=== PATIENT | female | born 1970 | race Caucasian/White ===

== ENCOUNTER → 2017-11-28 | Outpatient (CLI) | payer BC, OTHER ==
--- NOTE | 2017-11-29 07:52 | MM ---
Reason for exam: screening (asymptomatic). Last mammogram was performed 2 years and 7 months ago. History: Patient is postmenopausal, has history of other cancer at age 32, and is nulliparous. Family history of breast cancer in mother at age 50. Saline implants in both breasts, 2005. Physical Findings: A clinical breast exam by your physician is recommended on an annual basis and results should be correlated with mammographic findings. MG 3D Screen Mammo Imp/Cad Bilateral CC, MLO, and ID view(s) were taken. Prior study comparison: May 04, 2015, bilateral MG 3d diag mammo imp w/cad ROSENDO. March 26, 2014, bilateral MG screening mammo w CAD. The breast tissue is heterogeneously dense. This may lower the sensitivity of mammography. Asymmetric breast tissue in the left breast, stable. There is no discrete abnormality. Subpectoral breast implants bilaterally. ASSESSMENT: Benign, BI-RAD 2 RECOMMENDATION: Routine screening mammogram of both breasts in 1 year.
== END ==
LOC: RADMAMWWP 07:29
PROVIDERS: ATTEND Obstetrics & Gynecology
DX: Z12.31 Encounter for screening mammogram for malignant neoplasm of breast (principal)
CPT/HCPCS: 77063; 77067

== ENCOUNTER → 2020-10-31 | Outpatient (CLI) | payer OTHER ==
--- NOTE | 2020-10-31 14:04 | USB ---
Reason for exam: clinical finding. History: Patient is postmenopausal, has history of other cancer at age 32, and is nulliparous. Family history of breast cancer in mother at age 50. Saline implants in both breasts, 2004. Indicated problem(s): palpable abnormality in the right breast. Physical Findings: Nurse Summary: right breast palpable 6 o'clock x 2, 1 x 1.5cm, tender, movable (nurse ts). US Breast Limited RT Right limited breast ultrasound including focal area of concern, retroareolar and axilla demonstrates a 9 x 7 x 8mm oval, mixed lesion at 6 o'clock, a 10 x 8 x 9mm oval, hypoechoic lesion at 6 o'clock for which a biopsy is recommended and a 7 x 4 x 9mm oval, hypoechoic lesion at 5 o'clock for which a biopsy is recommended. These results were verbally communicated with the patient and result sheet given to the patient on 10/31/20. ASSESSMENT: Incomplete: need additional imaging evaluation, BI-RAD 0 RECOMMENDATION: Follow-up diagnostic mammogram of both breasts. Ultrasound core biopsy of the right breast. (two sites, 5 and 6 o'clock) Called Dr. Crcokett's office with mammographic findings and has scheduled an appointment for the patient for 11/24/20 at 11:[address] Blackwood. Biopsy scheduled for 11/11/20 at 10:30. PRELIMINARY REPORT CALLED AND FAXED TO DR. BLACKWOOD ON 10/31/20.
--- NOTE | 2020-10-31 14:05 | MM ---
Reason for exam: additional evaluation requested from abnormal screening. Last mammogram was performed 2 years and 11 months ago. History: Patient is postmenopausal, has history of other cancer at age 32, and is nulliparous. Family history of breast cancer in mother at age 50. Saline implants in both breasts, 2005. MG 3D Diag Mammo Imp W/Cad ROSENDO Bilateral CC, MLO, and ID view(s) were taken. Prior study comparison: November 28, 2017, bilateral MG 3d screen mammo imp/cad. May 04, 2015, bilateral MG 3d diag mammo imp w/cad ROSENDO. The breast tissue is heterogeneously dense. This may lower the sensitivity of mammography. There is no discrete abnormality including area of concern bilaterally. These results were verbally communicated with the patient and result sheet given to the patient on 10/31/20. ASSESSMENT: Suspicious, BI-RAD 4 (per ultrasound finding) RECOMMENDATION: Ultrasound core biopsy of the right breast. (two sites, 5 and 6 o'clock) Called Dr. Crockett's office with mammographic findings and has scheduled an appointment for the patient for 11/24/20 at 11:[address] Blackwood. Biopsy scheduled for 11/11/20 at 10:30. PRELIMINARY REPORT CALLED AND FAXED TO DR. BLACKWOOD ON 10/31/20.
== END | disposition home or self-care (01) ==
LOC: RADUSWWP 09:36
PROVIDERS: ATTEND Plastic Surgery
DX: N63.0 Unspecified lump in unspecified breast (principal); Z80.3 Family history of malignant neoplasm of breast
CPT/HCPCS: 77066; 76642; G0279; 77062

== ENCOUNTER → 2020-11-11 | Day surgery (SDC) | payer OTHER ==
[2020-11-11 10:37] VITALS: RESP 16
[2020-11-11 12:11] VITALS: BP 106/62; PULSE 52; TEMP 98.4
--- NOTE | 2020-11-11 12:41 | USB ---
EXAMINATION TYPE: US biopsy breast VAD RT, US biopsy breast add'l VAD RT, MG diagnostic mammo RT wo CAD DATE OF EXAM: 11/11/2020 CLINICAL HISTORY: R92.8 Abnormal mammogram. TECHNIQUE: Ultrasound guided core biopsy of right breast at the 5 and 6:00 positions breast. COMPARISON: NONE FINDINGS: The procedure of ultrasound guided core biopsy was explained to the patient. Benefits, alternatives, and risks were discussed. An informed consent was then obtained. The patient was placed in supine positioning for imaging and for the procedure. The overlying skin was prepped and draped in usual sterile fashion. Lidocaine buffered with bicarbonate was used as anesthetic into the skin and subcutaneous tissue up to area of concern in the right breast at the 5 and 6:00 positions breast. A concepcion was made with surgical scalpel. Under ultrasound guidance, a 12-gauge vacuum assisted biopsy gun device was used to obtain 5 core samples from the 6:00 location and 3 core samples from the 5:00 locatio.. Following this, a biopsy clip was left in both lesions. The patient tolerated the procedure well without any immediate complication. The patient was kept in the radiology department for short stay after the procedure and then discharged home in stable condition. IMPRESSION: Successful, uncomplicated ultrasound guided core biopsy of area of concern in the right breast at the 5 and 6:00 positions breast, full pathology results to follow. Pathology Results: Benign A. RIGHT BREAST, 5:00, CORE BIOPSY: Fibrotic scar with fat necrosis and chronic inflammation. Negative for in situ or invasive malignancy. Focal foreign material present adjacent to histiocytic chronic inflammation/fat necrosis. B. RIGHT BREAST, 6:00, CORE BIOPSY: Fibrous scar with fat necrosis and chronic inflammation. Negative for in situ or invasive malignancy. Focal foreign body type tissue reaction present. Recommendation Follow up ultrasound of the right breast in 6 months. MTDD
== END ==
LOC: RADUSWWP 10:23
PROVIDERS: ATTEND Surgery
DX: N64.1 Fat necrosis of breast (principal); R92.8 Other abnormal and inconclusive findings on diagnostic imaging of breast; Z88.6 Allergy status to analgesic agent
CPT/HCPCS: 88305; 77065; 19083; 19084; A4648; J2001

== ENCOUNTER → 2021-10-16 | Outpatient (CLI) | payer OTHER ==
--- NOTE | 2021-10-16 12:47 | P.BASOAP ---
Subjective Progress Note Date: 10/16/21 Principal diagnosis: Dysphagia 51-year-old female known to our service. Patient with history of lap band placement many years ago. She did have a prolapse fixed at one point. Starting last she ate some heri and felt like it had gotten stuck possibly. Following that up until today she has had intermittent spastic pains in the chest. She says she is able to drink liquids and eat without significant difficulty. She is unsure how much fluid is in her band. Patient had an EGD in 2014. No recent upper GI. Objective - Vital Signs Vital signs: Intake & Output 10/15/21 10/16/21 10/16/21 18:59 06:59 18:59 Weight 77.474 kg - Exam Abdomen: Soft, nontender, nondistended Assessment/Plan (1) Dysphagia Narrative/Plan: Options reviewed with patient. Suspect the patient may have some residual fluid present above the band. Will empty band at this time. Patient will have an upper GI in the next 2-4 weeks assuming she is symptom-free. If there are any residual symptoms she will contact me. We'll see the patient following up to discuss adding fluid back to the band. The patient's lap band port was palpated. The site was aseptically prepped. The Sexton needle was advanced into the port. A total of 5 ml of fluid was removed. Pressure was held and a sterile dressing was applied. Plan: Date: Initial Weight: Initial BMI: Current Weight: 77.474 kg Current BMI: Type of Surgery: Total Volume in Band: Previous Volume: Volume Removed: Volume Added: Band Size:
[2021-10-16 12:54] VITALS: BP 157/96; PULSE 72; TEMP 98.3; BMI 27.1
== END ==
LOC: BARWHC3 12:14
PROVIDERS: ATTEND Surgery
DX: Z46.51 Encounter for fitting and adjustment of gastric lap band (principal); R13.10 Dysphagia, unspecified; Z88.8 Allergy status to other drugs, medicaments and biological substances; Z88.9 Allergy status to unspecified drugs, medicaments and biological substances; Z87.891 Personal history of nicotine dependence
CPT/HCPCS: 99212

== ENCOUNTER → 2021-10-31 | Outpatient (CLI) | payer OTHER ==
[2021-10-31 14:42] VITALS: BP 162/84; PULSE 74; RESP 16; TEMP 98.2; BMI 27.5
--- NOTE | 2021-10-31 15:02 | P.BASOAP ---
Subjective Progress Note Date: 10/31/21 Principal diagnosis: Morbid obesity Patient returns today for evaluation. When she was seen a few weeks ago she was having issues with pain and occasional vomiting. Her band was emptied -5 mL at that time. Today she had an upper GI that appears normal. Requesting more fluid to be adequate. Her symptoms resolved after her band was loosened. Objective - Vital Signs Vital signs: Vital Signs Temp 98.2 F 10/31/21 14:39 Pulse 74 10/31/21 14:39 Resp 16 10/31/21 14:39 BP 162/84 10/31/21 14:39 Pulse Ox FiO2 Intake & Output 10/30/21 10/31/21 10/31/21 18:59 06:59 18:59 Weight 78.471 kg - Exam Abdomen: Soft, nontender, nondistended Assessment/Plan (1) Dysphagia Narrative/Plan: Patient requesting fluid added back to her band. We'll and 3 mL at this time. Follow-up if further feels needed. The patient's lap band port was palpated. The site was aseptically prepped. The Sexton needle was advanced into the port. A total of 3 ml of fluid was added for a total of 3 mL. Pressure was held and a sterile dressing was applied. Plan: Date: 10/31/21 Initial Weight: 78.471 kg Initial BMI: 27.5 Current Weight: 78.471 kg Current BMI: 27.5 Type of Surgery: Total Volume in Band: 0 Previous Volume: Volume Removed: Volume Added: Band Size:
== END | disposition home or self-care (01) ==
LOC: BARWHC3 14:22
PROVIDERS: ATTEND Surgery
DX: E66.01 Morbid (severe) obesity due to excess calories (principal); Z68.27 Body mass index [BMI] 27.0-27.9, adult
CPT/HCPCS: 99212

== ENCOUNTER → 2021-10-31 | Outpatient (CLI) | payer OTHER ==
--- NOTE | 2021-10-31 14:34 | FL ---
GASTRIC BANDING ESOPHAGRAM CLINICAL HISTORY: R13.10 DYSPHAGIA Gastric banding esophagram was performed. The patient ingested thin liquid barium without difficulty or delay. Gastric band is noted to be in place. There is no evidence for leak or obstruction. No prolapse is identified. IMPRESSION: Normal-appearing gastric banding device without leak or obstruction.
== END | disposition home or self-care (01) ==
LOC: RADUSWWP 13:45
PROVIDERS: ATTEND Surgery
DX: R13.10 Dysphagia, unspecified (principal)
CPT/HCPCS: 74220

== ENCOUNTER → 2021-11-21 | Outpatient (CLI) | payer OTHER ==
[2021-11-21 15:19] VITALS: BP 151/87; PULSE 71; RESP 16; TEMP 98.1; BMI 28.4
--- NOTE | 2022-01-09 13:27 | P.BASOAP ---
Subjective Progress Note Date: 11/21/21 Principal diagnosis: Morbid obesity Patient returns for recheck. Patient would like more fluid added to her band. She says that she would like to try 5 mL again since it did so well for her for so long. No nausea or vomiting. No restriction at this time. Objective - Vital Signs Vital signs: Vital Signs Temp 98.1 F 11/21/21 15:17 Pulse 71 11/21/21 15:17 Resp 16 11/21/21 15:17 BP 151/87 11/21/21 15:17 Pulse Ox FiO2 Intake & Output 11/20/21 11/21/21 11/21/21 18:59 06:59 18:59 Weight 81.193 kg - Exam Abdomen: Soft, nontender, nondistended Assessment/Plan (1) Dysphagia Narrative/Plan: 51-year-old female with morbid obesity. She would like more fluid added to her band. We discussed the options of how much to add at this time. She believes that she may have had food stuck last time. Therefore she would like to try going back to 5 mL. We have agreed at 2 mL at this time for total of 5 mL. She will contact me with any recurrent discomfort, reflux, dysphagia, or vomiting. The patient's lap band port was palpated. The site was aseptically prepped. The Sexton needle was advanced into the port. A total of 2 ml of fluid was added. Pressure was held and a sterile dressing was applied. Plan: Date: 11/21/21 Initial Weight: 78.471 kg Initial BMI: 27.5 Current Weight: 81.193 kg Current BMI: 28.4 Type of Surgery: Total Volume in Band: 3 Previous Volume: Volume Removed: Volume Added: Band Size:
== END | disposition home or self-care (01) ==
LOC: BARWHC3 15:16
PROVIDERS: ATTEND Surgery
DX: E66.01 Morbid (severe) obesity due to excess calories (principal); R13.10 Dysphagia, unspecified; Z68.28 Body mass index [BMI] 28.0-28.9, adult
CPT/HCPCS: 99212

== ENCOUNTER → 2022-01-09 | Outpatient (CLI) | payer OTHER ==
[2022-01-09 13:19] VITALS: BP 162/87; PULSE 67; RESP 16; TEMP 98.1; BMI 29.0
--- NOTE | 2022-01-09 13:34 | P.BASOAP ---
Subjective Progress Note Date: 01/09/22 Principal diagnosis: Morbid obesity Patient returns for recheck. Patient describes decreased restriction. A few visits ago the patient had 5 mL removed. She then had 3 mL added and then last visit had an additional 2 mL for a total of 5 mL. Patient says she still has no restriction. Eating 3-4 pieces of pizza at a time. No nausea or vomiting. No reflux. Objective - Vital Signs Vital signs: Vital Signs Temp 98.1 F 01/09/22 13:14 Pulse 67 01/09/22 13:14 Resp 16 01/09/22 13:14 BP 162/87 01/09/22 13:14 Pulse Ox FiO2 Intake & Output 01/08/22 01/09/22 01/09/22 18:59 06:59 18:59 Weight 83.007 kg - Exam Abdomen: Soft, nondistended, incisions clean and dry Assessment/Plan (1) Morbid obesity Narrative/Plan: Patient requesting additional fill. She and I discussed the options. We'll add 0.5 mL today. Total should be 5.5 mL. Check upper GI prior to any additional fills. The patient's lap band port was palpated. The site was aseptically prepped. The Sexton needle was advanced into the port. A total of 0.5 ml of fluid was added for a total of 5.5 mL. We did check the volume which was 5 mL prior to the fill. Pressure was held and a sterile dressing was applied. Plan: Date: 01/09/22 Initial Weight: 78.471 kg Initial BMI: 27.5 Current Weight: 83.007 kg Current BMI: 29.0 Type of Surgery: Total Volume in Band: 5 Previous Volume: Volume Removed: Volume Added: Band Size:
== END ==
LOC: BARWHC3 12:59
PROVIDERS: ATTEND Surgery
DX: Z98.84 Bariatric surgery status (principal); E66.01 Morbid (severe) obesity due to excess calories; Z87.891 Personal history of nicotine dependence; Z91.048 Other nonmedicinal substance allergy status; Z88.8 Allergy status to other drugs, medicaments and biological substances; Z68.29 Body mass index [BMI] 29.0-29.9, adult
CPT/HCPCS: 99211

== ENCOUNTER → 2022-02-15 | Outpatient (CLI) | payer OTHER ==
--- NOTE | 2022-02-18 13:36 | MM ---
Reason for Exam: Screening (asymptomatic). Last mammogram was performed 1 year(s) and 3 month(s) ago. Patient History: Menarche at age 10. Patient has no children. Left ovary removed at age 32. Right ovary removed at age 32. Hysterectomy at age 32. Postmenopausal. 11/11/2020, Benign Core Biopsy on the right side. 11/11/2020, Benign Core Biopsy on the right side. 07/03/2019, Bilateral Explants. 07/03/2019, Bilateral Implants. 2004, Bilateral Implants. Mother had breast cancer, age 50. Risk Values: Vicki 5 year model risk: 3.2%. NCI Lifetime model risk: 23.0%. Prior Study Comparison: 11/28/2017 Bilateral Screening Mammogram, [facility]. 10/31/2020 Bilateral Diagnostic Mammogram, [facility]. 11/11/2020 Right Diagnostic Mammogram, [facility]. Tissue Density: The breast tissue is heterogeneously dense. This may lower the sensitivity of mammography. Findings: Analyzed By CAD. Multiple areas of bilaterally symmetric density appear unchanged. Group of calcifications inferior right breast with microclip from prior biopsy. Bilateral retropectoral silicone implants are demonstrated. No significant change is identified. Overall Assessment: Benign, BI-RAD 2 Management: Screening Mammogram of both breasts in 1 year. 1. Per NCCN guidelines, a 5 year risk greater than 1.67% is used to assess eligibility for risk reduction therapy. Consider specialist referral for further assessment. 2. In addition, note the patient's increased (greater than 20%) lifetime risk for the development of breast cancer. The patient may qualify for alternating screening with mammogram and breast MRI. 3. Patient should continue monthly self breast exams. Negative results should not preclude additional follow-up of suspicious palpable abnormalities. Electronically signed and approved by: Kelly Rob M.D. Radiologist
== END | disposition home or self-care (01) ==
LOC: RADMAMWWP 14:44
PROVIDERS: ATTEND Internal Medicine
DX: Z12.31 Encounter for screening mammogram for malignant neoplasm of breast (principal); Z78.0 Asymptomatic menopausal state; Z80.3 Family history of malignant neoplasm of breast
CPT/HCPCS: 77063; 77067

== ENCOUNTER → 2023-04-29 | Outpatient (CLI) | payer OTHER ==
--- NOTE | 2023-05-01 07:40 | MM ---
Reason for Exam: Screening (asymptomatic). Last mammogram was performed 1 year(s) and 3 month(s) ago. Patient History: Menarche at age 10. Patient has no children. Left ovary removed at age 32. Right ovary removed at age 32. Hysterectomy at age 32. Postmenopausal. 11/11/2020, Benign Core Biopsy on the right side. 11/11/2020, Benign Core Biopsy on the right side. 07/03/2019, Bilateral Explants. 07/03/2019, Bilateral Implants. 2004, Bilateral Implants. Mother had breast cancer, age 50. Risk Values: Aicha 5 year model risk: 3.4%. NCI Lifetime model risk: 22.7%. Prior Study Comparison: 10/31/2020 Bilateral Diagnostic Mammogram, [facility]. 11/11/2020 Right Diagnostic Mammogram, [facility]. 02/15/2022 Bilateral MG 3D screen mammo imp/cad., [facility]. Tissue Density: The breasts are heterogeneously dense, which may obscure small masses. Findings: Analyzed By CAD. Prepectoral saline implants. Microclip right breast from prior biopsy. Fat necrosis calcifications inferiorly on the right. Unchanged bilateral areas of asymmetric density. No patient's increased risk scores above and recommendations below. There is no suspicious group of microcalcifications or new suspicious mass in either breast. Overall Assessment: Benign, BI-RAD 2 Management: Screening Mammogram of both breasts in 1 year. SEE NOTE BELOW IN REGARDS TO PATIENT'S INCREASED 5 YEAR AICHA AND INCREASED LIFETIME RISK SCORE. Patient should continue monthly self-breast exams. A clinical breast exam by your physician is recommended on an annual basis. This exam should not preclude additional follow-up of suspicious palpable abnormalities. Note on Aicha scores and lifetime risk: 1. A Aicha score greater than 3% is considered moderate risk. If this is the case, consider specialist referral to assess eligibility for a risk reducing agent. 2. If overall lifetime risk for the development of breast cancer is 20% or higher, the patient may qualify for future screening with alternating mammogram and breast MRI. Electronically signed and approved by: Kelly Rob M.D. Radiologist
== END | disposition home or self-care (01) ==
LOC: RADMAMWWP 12:44
PROVIDERS: ATTEND Obstetrics & Gynecology
DX: Z12.31 Encounter for screening mammogram for malignant neoplasm of breast (principal); Z78.0 Asymptomatic menopausal state; Z80.3 Family history of malignant neoplasm of breast
CPT/HCPCS: 77063; 77067

== ENCOUNTER → 2023-12-17 | Outpatient (CLI) | payer OTHER ==
[2023-12-17 10:06] VITALS: BP 129/86; PULSE 69; RESP 16; TEMP 98.2
--- NOTE | 2023-12-17 10:59 | P.HPOB ---
History of Present Illness H&P Date: 12/17/23 Chief Complaint: The patient is here for her routine gynecologic exam. This is a 53-year-old G0 with an LMP of 2002. The patient is here to establish with this office. It has been about 1 year since her last pelvic exam. She is status post LORRIE with unilateral oophorectomy in 2002. She states that cervical cancer was found at the time of the hysterectomy. She is status post radiation and chemotherapy as well. She has had Pap smears done on a regular basis since her hysterectomy. She is without gynecologic complaints. Review of Systems The patient's weight has been stable over the last year. She denies respiratory, cardiac, or G.I. problems. Past Medical History Past Medical History: Asthma, Cancer Additional Past Medical History / Comment(s): anemia. 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 History of Any Multi-Drug Resistant Organisms: None Reported Past Surgical History: Bariatric Surgery, Breast Surgery, Hysterectomy, Orthopedic Surgery Additional Past Surgical History / Comment(s): lap band, abdominoplasty and breast reconstrucion, rt knee surgery, deviated septum. Bilateral breast implants with later replacement of implants. LORRIE with unilateral oophorectomy in 2002. Colonoscopy approximately 2012. Past Anesthesia/Blood Transfusion Reactions: Motion Sickness, Postoperative Nausea & Vomiting (PONV) Past Psychological History: Anxiety Smoking Status: Former smoker Past Alcohol Use History: Rare (Drinks per year) Additional Past Alcohol Use History / Comment(s): started smoking in her 20's, quit smoking 2002, Past Drug Use History: None Reported Additional History: She is single but has been with her boyfriend since 2012. They are not sexually active. They live separately. She cares for her elderly mother. - Past Family History Mother Family Medical History: Cancer Additional Family Medical History / Comment(s): breast cancer Father Family Medical History: Congestive Heart Failure (CHF) Additional Family Medical History / Comment(s): . Sister(s) Additional Family Medical History / Comment(s): Endometriosis. Medications and Allergies Home Medications Medication Instructions Recorded Confirmed Type ALPRAZolam [Xanax] 1 mg PO DAILY PRN 12/09/14 12/17/23 History Albuterol Inhaler [Ventolin 1 - 2 puff INHALATION Q6HR PRN 12/09/14 12/17/23 History Inhaler] lamoTRIgine [LaMICtal] 150 mg PO BID 11/02/20 12/17/23 History Allergies Allergy/AdvReac Type Severity Reaction Status Date / Time nickel Allergy blisters Verified 12/17/23 10:03 rofecoxib [From Vioxx] Allergy vomtiing Verified 12/17/23 10:03 Exam Vital Signs Temp Pulse Resp BP Pulse Ox 12/17/23 10:04 98.2 F 69 16 129/86 99 Intake and Output 12/16/23 12/17/23 12/17/23 22:59 06:59 14:59 Other: Weight 76.657 kg Height 5 feet 7 inches, weight 169 pounds, BMI 26.5. This is a well-developed well-nourished white female who is alert and oriented times 3 in no acute distress. HEENT: Within normal limits. NECK: Supple without mass or thyromegaly. CHEST AND LUNGS: Clear to auscultation. HEART: Regular rate and rhythm. BREASTS: Are without mass or discharge. Breasts are consistent with bilateral implants. AXILLARY EXAM: Negative for adenopathy. BACK: Negative for CVA tenderness. ABDOMEN: Soft, nontender, without palpable masses. The Lap-Band port is palpable in the upper left quadrant of the abdomen approximately 6 cm from the umbilicus. It is nontender. PELVIC EXAM: External genitalia appears normal with mild atrophy. Vagina appears normal with mild to moderate atrophy. The vagina is somewhat shortened and slightly narrower than normal consistent with her previous radiation therapy. There is no evidence of prolapse. Bimanual examination is negative for mass or tenderness. RECTAL EXAM: With rectovaginal examination there is a palpable mass measuring approximately 2.5 cm which is somewhat firm and irregular, but mobile, distal to the vagina and anterior to the rectum. It is near the midline. EXTREMITIES: Nontender. IMPRESSION: 1. 53-year-old menopausal female status post [facility] with unilateral oophorectomy in 2002 where cervical cancer was found. She is status post chemotherapy and radiation therapy for this. 2. Palpable pelvic mass measuring approximately 2.5 cm noted on rectovaginal exam. This most likely represents stool, but ovarian neoplasm cannot be ruled out. PLAN: 1. Pap smear was performed from the vaginal cuff. We will continue to do this yearly because of her history of cervical cancer. 2. Self breast awareness was discussed with the patient. We have also discussed symptoms associated with inflammatory breast cancer. 3. Screening mammogram was last done on 04/29/2023 and was benign. This will be repeated after 1 year. The order slip was given to the patient for this. 4. Osteoporosis prevention was discussed. I have stressed the importance of adequate calcium, vitamin D and regular exercise. Recommended amounts of calcium and vitamin D were also discussed. 5. Pelvic ultrasound was recommended to further evaluate the pelvic mass. She was asked to try to empty her bowels the best she can and to use an over-the- counter stool softener and laxative such as Senokot, if needed. The order slip was given to the patient for the pelvic ultrasound. 6. Cologuard testing was recently done and was negative per the patient. She will continue to do colorectal cancer screening through her PCP. 7. She was advised to return in one year for her annual well woman exam.
== END ==
LOC: WWCWWP 09:45
PROVIDERS: ATTEND Obstetrics & Gynecology

== ENCOUNTER → 2023-12-23 | Outpatient (CLI) | payer OTHER ==
--- NOTE | 2023-12-23 16:34 | US ---
EXAMINATION TYPE: US pelvis complete transvag DATE OF EXAM: 12/23/2023 COMPARISON: NONE CLINICAL INDICATION: Female, 53 years old with history of R19.09 INTRA-ABDOMINAL AND PELVIC SWELLING; cervical cancer 2002, uterus and one ovary removed TECHNIQUE: Transvaginal (TV) and Transabdominal (TA) . Transabdominal grayscale sonographic images of the pelvis were acquired. Transvaginal sonographic im ages were medically necessary to better assess the following anatomy: Ovaries Doppler imaging: Not performed. FINDINGS: Date of LMP: 2002 EXAM MEASUREMENTS: Uterus: Surgically absent Endometrial Stripe: Surgically absent Right Ovary: obscured Left Ovary: obscured 1. Uterus: Surgically absent 2. Endometrium: Surgically absent 3. Right Ovary: Obscured by overlying bowel gas 4. Left Ovary: Obscured by overlying bowel gas 5. Bilateral Adnexa: Obscured by overlying bowel gas 6. Posterior cul-de-sac: wnl IMPRESSION: Postoperative pelvis. [facility], , 12/23/2023 4:32 PM
== END | disposition home or self-care (01) ==
LOC: RADUSWWP 14:50
PROVIDERS: ATTEND Obstetrics & Gynecology
DX: R19.09 Other intra-abdominal and pelvic swelling, mass and lump (principal); N99.4 Postprocedural pelvic peritoneal adhesions
CPT/HCPCS: 76830; 76856

== ENCOUNTER → 2024-06-30 | Outpatient (CLI) | payer OTHER ==
[2024-06-30 15:10] VITALS: BP 161/99; PULSE 91; RESP 16; TEMP 98.3; BMI 26.2
--- NOTE | 2024-06-30 15:29 | P.BASOAP ---
Subjective Progress Note Date: 06/30/24 Principal diagnosis: Morbid obesity Patient comes in today to discuss recent bowel issues. Has not been seen for her band in a few years. Has decent restriction. Weight today 167 which she is happy with. Patient apparently for the last couple of years has had issues with frequent diarrhea. Underwent recent colonoscopy in [facility] and was told she had a narrowing of the colon. They could not advance through the colon. She had severe pain and bloating after the procedure that lasted for quite some time. CAT scan performed showing no perforation. After passing gas her pain relieved. Was told she needed further intervention for this colon narrowing. Here to discuss options. Does not feel constipated. Usually 1-2 loose stools per day. Some bloating at times. Objective - Vital Signs Vital signs: Vital Signs Temp 98.3 F 06/30/24 15:08 Pulse 91 06/30/24 15:08 Resp 16 06/30/24 15:08 BP 161/99 06/30/24 15:08 Pulse Ox FiO2 Intake & Output 06/29/24 06/30/24 06/30/24 18:59 06:59 18:59 Weight 75.863 kg - Exam Abdomen: Soft, nontender, nondistended Assessment/Plan (1) Morbid obesity Narrative/Plan: 53-year-old female known to our service. Patient with history of prior lap band placement. Now patient has possible colon stricture. History of previous pelvic radiation and surgery for malignancy. This was apparently performed at [facility]. Discussed with patient at length that I would prefer she be seen by colorectal surgery to evaluate this further at this time. Will make an appointment for patient and be seen by the [facility] colorectal surgery team for this. Will try to have records sent from [facility] regarding her recent endoscopy. Keep band at 5.5 cc for now. Discussed emptying the band if she has future colonic surgery. Plan: Date: 06/30/24 Initial Weight: 78.471 kg Initial BMI: 27.1 Current Weight: 75.863 kg Current BMI: 26.2 Type of Surgery: Adjustable Gastric Banding Total Volume in Band: 5.5 Previous Volume: Volume Removed: Volume Added: Band Size:
== END ==
LOC: BARWHC3 15:01
PROVIDERS: ATTEND Surgery
DX: E66.01 Morbid (severe) obesity due to excess calories (principal); Z87.891 Personal history of nicotine dependence; Z88.8 Allergy status to other drugs, medicaments and biological substances; Z91.048 Other nonmedicinal substance allergy status; Z68.26 Body mass index [BMI] 26.0-26.9, adult
CPT/HCPCS: 99211